=== PATIENT | male | born 1990 | race Caucasian/White ===

== ENCOUNTER 2017-05-14 15:21 | Emergency (ER) | payer SELFPAY ==
--- NOTE | 2017-05-14 15:44 | ED ORDER SUMMARY ---
..... Patient: MARINA AGUILAR OrderSheet [facility] VisitID: [id number] [place] [address] 26y, M Registration Date/Time: 05/14/2017 ORDER SHEET Weight: 68.9 kg Allergies: No Known Drug Allergy GENERAL ORDERS: Urine Drug Screen Urgent (15:41 05/14/2017 Honorio per protocol) (15:47 Juan Diego) MEDICATION ORDERS: Zofran ODT PO 8 mg (NOW) (15:44 05/14/2017 EKoroleva P.A.-C) (16:08 Honorio) Motrin PO 800 mg (NOW) (15:44 05/14/2017 EKoroleva P.A.-C) (16:08 Honorio) Tylenol PO 650 mg (NOW) (15:44 05/14/2017 EKoroleva P.A.-C) (16:08 Honorio) IV FLUIDS: ORDER SHEET NOTES: [Electronically signed by María Smith (16:10 05/14/2017)] [Electronically signed by Lizz Marshall P.A.-C (16:22 05/14/2017)] [Electronically locked/signed by María Smith (16:10 05/14/2017)]
--- NOTE | 2017-05-14 15:44 | ED CLINICAL REPORT ---
Clinical Report - Physicians/Mid Levels [facility] [address] [place] [address] 05/14/2017 15:24 Patient: MARINA AGUILAR Time Seen: 1615 May 14 2017. Arrived- By private vehicle. Historian- patient. HISTORY OF PRESENT ILLNESS Chief Complaint: "GOT THE SHAKES". Patient reports off and on use of heroin, IV use over the last 6 years, reports wishing to become sober, and attend treatment, has been calling for a treatment, awaiting a bed. Patient reports last use was last night. He reports previously coming off heroin, on his own, has never received any treatments. Reports some nausea, weakness arthralgias and body aches in general. Denies any fevers or current abd pain. Denies any seizure activity. Denies any use of any other drugs. REVIEW OF SYSTEMS All systems otherwise negative, except as recorded above. PAST HISTORY Problems: Heroin dependence. Medications: None. Allergies: No Known Drug Allergy. SOCIAL HISTORY Current every day light tobacco smoker- less than 1/2 a pack per day. History of heavy IV drug use: heroin. ADDITIONAL NOTES The nursing notes have been reviewed. PHYSICAL EXAM Vital Signs: 05/14/2017 15:34 BP: 129/92. HR: 75. RR: 20. O2 saturation: 100%. Temp: 98.1 F. Appearance: Alert. Head: Head atraumatic. CVS: Normal heart rate and rhythm. Heart sounds normal. Respiratory: No respiratory distress. Abdomen: Soft. No obesity. Skin: Skin warm. Normal skin color. Neuro: Alert. PROGRESS AND PROCEDURES Course of Care: Afebrile patient in no distress. Patient with no fevers. No emesis or diarrhea. Euvolemic appearing. Patient has so number to call for treatment bed. At this time no further acute workup. Denies suicidal or homicidal ideation this time. Denies any other drug use. Discussed with patient, he may have multiple side effects, however it is not dangerous in itself to discontinue use of heroin. Patient understands the plan. Patient/family counseled. Disposition: Discharged. CLINICAL IMPRESSION Substance abuse problems: abuse of opiates. Substance dependence problems: dependence on opiates. INSTRUCTIONS (keep calling [facility] daily in AM). Prescription Medications: Zofran (orally disintegrating tablets) 4 mg: take 1 orally every 8 hours for 5 days as needed for nausea. Dispense twenty (20). No refill. Substitution is permissible. Ibuprofen 800 mg tablets: take 1 tablet orally every 8 hours for 5 days, as needed for pain. Dispense twenty (20). No refill. Phenergan 12.5 mg tablets: take 1 orally as needed for nausea or vomiting. Dispense fifteen (15) Trazodone 50 mg: at bedtime for 7 days. No refill. (#7) Vistaril 50 mg: take 1 orally every 8 hours for 7 days as needed for anxiety. Dispense twenty (20). No refill. Substitution is permissible. Cyclobenzaprine 10 mg: take 1 orally every 8 hours for 5 days as needed for muscle spasm or pain. Dispense fifteen (15). No refills. OTC Medications: Tylenol ER 650 mg (available over the counter): take 1 orally every 6 hours for 5 days, as needed for pain. Dispense twenty-five (25). No refill. Loperamide 2 mg (available over the counter): initially take 2 orally, for 5 days. Dispense forty-eight (48). No refills. Follow-up: Follow up with a specialist. (Electronically signed by Lizz Marshall P.A.-C 05/14/2017 16:22)
--- NOTE | 2017-05-14 15:44 | ED NURSING NOTES ---
Clinical Report - Nurses [facility] [address] [place] [address] 05/14/2017 15:24 Patient: MARINA AGUILAR TRIAGE Triage time 1530. Acuity: LEVEL 3. Chief Complaint: (withdrawal sxs of heroin). Alert. No acute distress. --15:39 María Smith 15:34 05/14/17. BP: 129/92. HR: 75. RR: 20. O2 saturation: 100%. Temp: 98.1 F. Pain level now 610. --15:39 María Smith. Weight: 68.9 kg. Height/Length: 68 inches. BMI: 23.1. --15:33 María Smith. Medications None. --15:36 María Smith. Medication/allergy information source: the patient. --15:39 María Smith. Allergies No Known Drug Allergy. --15:36 María Smith. History Arrived by private vehicle. Historian: patient. Accompanied by family. This started today. ( Pt last use of heroin yesterday at 1600, IV, pt c/o nausea diarrhea abd cramping muscle aches and fatigue, pt wants to quit and go to detox). 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 PAST MEDICAL HX: Immunizations: up-to-date. SOCIAL HX: Light tobacco smoker (cigarette)- less than 1/2 a pack per day. History of heavy IV drug use: heroin. Recently used drugs yesterday. FALL RISK ASSESSMENT: Fall risk assessment completed. No fall risk identified. NUTRITIONAL RISK ASSESSMENT: The nutritional risk assessment revealed no deficiencies. FUNCTIONAL ASSESSMENT: Functional assessment: no impairments noted. LEARNING NEEDS ASSESSMENT: The learning needs assessment revealed no barriers. SKIN INTEGRITY ASSESSMENT: Skin integrity risk assessment completed. No skin integrity risk identified. --15:39 María Smith. PROBLEMS: Heroin dependence. --15:36 María Smith. Interventions ID band on patient. To treatment room. --15:39 María Smith. PHYSICAL ASSESSMENT Ambulatory to room. GENERAL / NEURO / PSYCH: Alert. Oriented X 4. Appears anxious. HEENT: Pupils equal, round and reactive to light. No facial asymmetry noted. Mucous membranes are pink. RESPIRATORY: Respirations not labored. Chest nontender. Breath sounds within normal limits. CVS: Normal sinus rhythm noted. Capillary refill less than 2 seconds. Pulses within normal limits. GI / : Abdomen soft and nontender. SKIN: Skin intact. Skin is warm and dry. Normal skin turgor. --15:40 María Smith. NURSING PROGRESS NOTES Reassurance given. Bed placed in lowest position. Brakes of bed on. Patient ready for evaluation- chart flagged. --15:40 María Smith 16:08 05/14/2017 Zofran ODT (Ondansetron) PO 8 mg given. Allergies verified and confirmed 5 rights. --16:08 María Smith 16:08 05/14/2017 Motrin PO 800 mg given. Allergies verified and confirmed 5 rights. --16:08 María Smith 16:08 05/14/2017 Tylenol (Acetaminophen) PO 650 mg given. Allergies verified and confirmed 5 rights. --16:08 María Smith. DISPOSITION / DISCHARGE Departure time: 1600. Condition at departure: unchanged and stable. No learning barriers present. Discharge instructions provided and reviewed with the patient. Reviewed medication(s). Patient verbalized understanding. Written instructions provided in Lao. The patient was discharged by the physician customer relations assistant. He was discharged home and accompanied by family. He left the Emergency Department ambulatory and via private vehicle. Family member driving. --16:09 María Smith. Locked/Released at 05/14/2017 16:10 by María Smith,
--- NOTE | 2017-05-14 15:44 | ED NURSING NOTES ---
Clinical Report - Nurses [facility] [address] [place] [address] 05/14/2017 15:24 Patient: MARINA AGUILAR TRIAGE Triage time 1530. Acuity: LEVEL 3. Chief Complaint: (withdrawal sxs of heroin). Alert. No acute distress. --15:39 María Smith 15:34 05/14/17. BP: 129/92. HR: 75. RR: 20. O2 saturation: 100%. Temp: 98.1 F. Pain level now 610. --15:39 María Smith. Weight: 68.9 kg. Height/Length: 68 inches. BMI: 23.1. --15:33 María Smith. Medications None. --15:36 María Smith. Medication/allergy information source: the patient. --15:39 María Smith. Allergies No Known Drug Allergy. --15:36 María Smith. History Arrived by private vehicle. Historian: patient. Accompanied by family. This started today. ( Pt last use of heroin yesterday at 1600, IV, pt c/o nausea diarrhea abd cramping muscle aches and fatigue, pt wants to quit and go to detox). 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 PAST MEDICAL HX: Immunizations: up-to-date. SOCIAL HX: Light tobacco smoker (cigarette)- less than 1/2 a pack per day. History of heavy IV drug use: heroin. Recently used drugs yesterday. FALL RISK ASSESSMENT: Fall risk assessment completed. No fall risk identified. NUTRITIONAL RISK ASSESSMENT: The nutritional risk assessment revealed no deficiencies. FUNCTIONAL ASSESSMENT: Functional assessment: no impairments noted. LEARNING NEEDS ASSESSMENT: The learning needs assessment revealed no barriers. SKIN INTEGRITY ASSESSMENT: Skin integrity risk assessment completed. No skin integrity risk identified. --15:39 María Smith. PROBLEMS: Heroin dependence. --15:36 María Smith. Interventions ID band on patient. To treatment room. --15:39 María Smith. PHYSICAL ASSESSMENT Ambulatory to room. GENERAL / NEURO / PSYCH: Alert. Oriented X 4. Appears anxious. HEENT: Pupils equal, round and reactive to light. No facial asymmetry noted. Mucous membranes are pink. RESPIRATORY: Respirations not labored. Chest nontender. Breath sounds within normal limits. CVS: Normal sinus rhythm noted. Capillary refill less than 2 seconds. Pulses within normal limits. GI / : Abdomen soft and nontender. SKIN: Skin intact. Skin is warm and dry. Normal skin turgor. --15:40 aMría Smith. NURSING PROGRESS NOTES Reassurance given. Bed placed in lowest position. Brakes of bed on. Patient ready for evaluation- chart flagged. --15:40 María Smith 16:08 05/14/2017 Zofran ODT (Ondansetron) PO 8 mg given. Allergies verified and confirmed 5 rights. --16:08 María Smith 16:08 05/14/2017 Motrin PO 800 mg given. Allergies verified and confirmed 5 rights. --16:08 María Smith 16:08 05/14/2017 Tylenol (Acetaminophen) PO 650 mg given. Allergies verified and confirmed 5 rights. --16:08 María Smith. DISPOSITION / DISCHARGE Departure time: 1600. Condition at departure: unchanged and stable. No learning barriers present. Discharge instructions provided and reviewed with the patient. Reviewed medication(s). Patient verbalized understanding. Written instructions provided in Estonian. The patient was discharged by the physician pastoral assistant. He was discharged home and accompanied by family. He left the Emergency Department ambulatory and via private vehicle. Family member driving. --16:09 María Smith. Locked/Released at 05/14/2017 16:10 by María Smith,
--- NOTE | 2017-05-14 15:44 | ED ORDER SUMMARY ---
..... Patient: MARINA AGUILAR OrderSheet [facility] VisitID: [id number] [place] [address] 26y, M Registration Date/Time: 05/14/2017 ORDER SHEET Weight: 68.9 kg Allergies: No Known Drug Allergy GENERAL ORDERS: Urine Drug Screen Urgent (15:41 05/14/2017 Honorio per protocol) (15:47 Juan Diego) MEDICATION ORDERS: Zofran ODT PO 8 mg (NOW) (15:44 05/14/2017 EKoroleva P.A.-C) (16:08 Honorio) Motrin PO 800 mg (NOW) (15:44 05/14/2017 EKoroleva P.A.-C) (16:08 Honorio) Tylenol PO 650 mg (NOW) (15:44 05/14/2017 EKoroleva P.A.-C) (16:08 Honorio) IV FLUIDS: ORDER SHEET NOTES: [Electronically signed by María Smith (16:10 05/14/2017)] [Electronically signed by Lizz Marshall P.A.-C (16:22 05/14/2017)] [Electronically locked/signed by María Smith (16:10 05/14/2017)]
--- NOTE | 2017-05-14 16:22 | ED MAR SUMMARY ---
..... Medication Administration Record [facility] [address] [place] [address] Patient: MARINA AGUILAR Visit ID: [id number] 26y, M Weight: 68.9 kg Height/Length: 68 in BMI: 23.1 ALLERGIES: No Known Drug Allergy Given 16:05/14/2017 María Smith, Medication Administered: ZOFRAN ODT [PO] (ONDANSETRON), Dose: 8 mg PO. Medication Ordered: Zofran ODT PO 8 mg (NOW). Given 16:05/14/2017 María Smith, Medication Administered: MOTRIN [PO], Dose: 800 mg PO. Medication Ordered: Motrin PO 800 mg (NOW). Given 16:05/14/2017 María Smith, Medication Administered: TYLENOL [PO] (ACETAMINOPHEN), Dose: 650 mg PO. Medication Ordered: Tylenol PO 650 mg (NOW).
--- NOTE | 2017-05-14 16:22 | ED DISCHARGE INSTRUCTIONS ---
Patient: MARINA AGUILAR General Instructions [facility] VisitID: [id number] [place] [address] 26y, M Registration Date/Time: 05/14/2017 Substance abuse problems: abuse of opiates. Substance dependence problems: dependence on opiates. INSTRUCTIONS (keep calling [facility] daily in AM). Prescription Medications: Zofran (orally disintegrating tablets) 4 mg: take 1 orally every 8 hours for 5 days as needed for nausea. Dispense twenty (20). No refill. Substitution is permissible. Ibuprofen 800 mg tablets: take 1 tablet orally every 8 hours for 5 days, as needed for pain. Dispense twenty (20). No refill. Phenergan 12.5 mg tablets: take 1 orally as needed for nausea or vomiting. Dispense fifteen (15) Trazodone 50 mg: at bedtime for 7 days. No refill. (#7) Vistaril 50 mg: take 1 orally every 8 hours for 7 days as needed for anxiety. Dispense twenty (20). No refill. Substitution is permissible. Cyclobenzaprine 10 mg: take 1 orally every 8 hours for 5 days as needed for muscle spasm or pain. Dispense fifteen (15). No refills. OTC Medications: Tylenol ER 650 mg (available over the counter): take 1 orally every 6 hours for 5 days, as needed for pain. Dispense twenty-five (25). No refill. Loperamide 2 mg (available over the counter): initially take 2 orally, for 5 days. Dispense forty-eight (48). No refills. Follow-up: Follow up with a specialist. (Electronically signed by Lizz Marshall P.A.-C 05/14/2017 16:22)
--- NOTE | 2017-05-14 16:22 | ED MED RECONCILIATION SUMMARY ---
Patient: MARINA AGUILAR Medication Reconciliation Report [facility] VisitID: [id number] [place] [address] 26y, M Registration Date/Time: 05/14/2017 Weight: 68.9 kg Height/Length: 68 in. BMI: 23.1 ALLERGIES: No Known Drug Allergy The patient's Home Medications are listed below: NONE. The source(s) of the original Home Medication information: patient The following Medications were given to the patient in the Emergency Department: Zofran ODT [PO] PO 8 mg, administered: 05/14/2017 4:08:00 PM Motrin [PO] PO 800 mg, administered: 05/14/2017 4:08:00 PM Tylenol [PO] PO 650 mg, administered: 05/14/2017 4:08:00 PM The following Medications were prescribed to the patient: Zofran (orally disintegrating tablets) 4 mg: take 1 orally every 8 hours for 5 days as needed for nausea. Dispense twenty (20). No refill. Substitution is permissible. -- Koroleva, Lizz, P.A.-C Ibuprofen 800 mg tablets: take 1 tablet orally every 8 hours for 5 days, as needed for pain. Dispense twenty (20). No refill. -- Koroleva, Lizz, P.A.-C Tylenol ER 650 mg (available over the counter): take 1 orally every 6 hours for 5 days, as needed for pain. Dispense twenty-five (25). No refill. -- Koroleva, Lizz, P.A.-C Phenergan 12.5 mg tablets: take 1 orally as needed for nausea or vomiting. Dispense fifteen (15) -- Koroleva, Lizz, P.A.-C Loperamide 2 mg (available over the counter): initially take 2 orally, for 5 days. Dispense forty-eight (48). No refills. -- Koroleva, Lizz, P.A.-C Trazodone 50 mg: at bedtime for 7 days. No refill.(#7) -- Koroleva, Lizz, P.A.-C Vistaril 50 mg: take 1 orally every 8 hours for 7 days as needed for anxiety. Dispense twenty (20). No refill. Substitution is permissible. -- Lizz Marshall P.A.-C Cyclobenzaprine 10 mg: take 1 orally every 8 hours for 5 days as needed for muscle spasm or pain. Dispense fifteen (15). No refills. -- Lizz Marshall P.A.-C
--- NOTE | 2017-05-14 16:22 | ED MED RECONCILIATION SUMMARY ---
Patient: MARINA AGUILAR Medication Reconciliation Report [facility] VisitID: [id number] [place] [address] 26y, M Registration Date/Time: 05/14/2017 Weight: 68.9 kg Height/Length: 68 in. BMI: 23.1 ALLERGIES: No Known Drug Allergy The patient's Home Medications are listed below: NONE. The source(s) of the original Home Medication information: patient The following Medications were given to the patient in the Emergency Department: Zofran ODT [PO] PO 8 mg, administered: 05/14/2017 4:08:00 PM Motrin [PO] PO 800 mg, administered: 05/14/2017 4:08:00 PM Tylenol [PO] PO 650 mg, administered: 05/14/2017 4:08:00 PM The following Medications were prescribed to the patient: Zofran (orally disintegrating tablets) 4 mg: take 1 orally every 8 hours for 5 days as needed for nausea. Dispense twenty (20). No refill. Substitution is permissible. -- Koroleva, Lizz, P.A.-C Ibuprofen 800 mg tablets: take 1 tablet orally every 8 hours for 5 days, as needed for pain. Dispense twenty (20). No refill. -- Koroleva, Lizz, P.A.-C Tylenol ER 650 mg (available over the counter): take 1 orally every 6 hours for 5 days, as needed for pain. Dispense twenty-five (25). No refill. -- Koroleva, Lizz, P.A.-C Phenergan 12.5 mg tablets: take 1 orally as needed for nausea or vomiting. Dispense fifteen (15) -- Koroleva, Lizz, P.A.-C Loperamide 2 mg (available over the counter): initially take 2 orally, for 5 days. Dispense forty-eight (48). No refills. -- Koroleva, Lizz, P.A.-C Trazodone 50 mg: at bedtime for 7 days. No refill.(#7) -- Koroleva, Lizz, P.A.-C Vistaril 50 mg: take 1 orally every 8 hours for 7 days as needed for anxiety. Dispense twenty (20). No refill. Substitution is permissible. -- Lizz Marshall P.A.-C Cyclobenzaprine 10 mg: take 1 orally every 8 hours for 5 days as needed for muscle spasm or pain. Dispense fifteen (15). No refills. -- Lizz Marshall P.A.-C
--- NOTE | 2017-05-14 16:22 | ED MAR SUMMARY ---
..... Medication Administration Record [facility] [address] [address] Patient: MARINA AGUILAR Visit ID: [id number] 26y, M Weight: 68.9 kg Height/Length: 68 in BMI: 23.1 ALLERGIES: No Known Drug Allergy Given 16:05/14/2017 María Smith, Medication Administered: ZOFRAN ODT [PO] (ONDANSETRON), Dose: 8 mg PO. Medication Ordered: Zofran ODT PO 8 mg (NOW). Given 16:05/14/2017 María Smith, Medication Administered: MOTRIN [PO], Dose: 800 mg PO. Medication Ordered: Motrin PO 800 mg (NOW). Given 16:05/14/2017 María Smith, Medication Administered: TYLENOL [PO] (ACETAMINOPHEN), Dose: 650 mg PO. Medication Ordered: Tylenol PO 650 mg (NOW).
--- NOTE | 2017-05-14 16:22 | ED DISCHARGE INSTRUCTIONS ---
Patient: MARINA AGUILAR General Instructions [facility] VisitID: [id number] [place] [address] 26y, M Registration Date/Time: 05/14/2017 Substance abuse problems: abuse of opiates. Substance dependence problems: dependence on opiates. INSTRUCTIONS (keep calling [facility] daily in AM). Prescription Medications: Zofran (orally disintegrating tablets) 4 mg: take 1 orally every 8 hours for 5 days as needed for nausea. Dispense twenty (20). No refill. Substitution is permissible. Ibuprofen 800 mg tablets: take 1 tablet orally every 8 hours for 5 days, as needed for pain. Dispense twenty (20). No refill. Phenergan 12.5 mg tablets: take 1 orally as needed for nausea or vomiting. Dispense fifteen (15) Trazodone 50 mg: at bedtime for 7 days. No refill. (#7) Vistaril 50 mg: take 1 orally every 8 hours for 7 days as needed for anxiety. Dispense twenty (20). No refill. Substitution is permissible. Cyclobenzaprine 10 mg: take 1 orally every 8 hours for 5 days as needed for muscle spasm or pain. Dispense fifteen (15). No refills. OTC Medications: Tylenol ER 650 mg (available over the counter): take 1 orally every 6 hours for 5 days, as needed for pain. Dispense twenty-five (25). No refill. Loperamide 2 mg (available over the counter): initially take 2 orally, for 5 days. Dispense forty-eight (48). No refills. Follow-up: Follow up with a specialist. (Electronically signed by Lizz Marshall P.A.-C 05/14/2017 16:22)
== END 2017-05-14 16:00 | disposition home or self-care (01) ==
LOC: ED SRH 15:21
DX: F11.20 Opioid dependence, uncomplicated (principal); F17.210 Nicotine dependence, cigarettes, uncomplicated
CPT/HCPCS: 92760; 92761; 92762; 92763; 92764; 92765; 92766; 92767